=== PATIENT | female | born 1975 | race American Indian/Alaskan Native ===

== ENCOUNTER 2017-03-02 09:21 | Outpatient (CLI) | payer MEDICARE ==
[2017-03-02 10:35] LABS: Blood Urea Nitrogen 17 mg/dL (7-17)
[2017-03-02] MEDS ORDERED: NACL ONE (10:45)
--- NOTE | 2017-03-02 12:01 | Cat Scan Report ---
CT CHEST WITH AND WITHOUT CONTRAST INDICATION: Left hilar nodule. COMPARISON: None similar at this institution. FINDINGS: Pre-and post contrast chest CT suggests slight cardiomegaly. No effusions or size significant adenopathy. Unremarkable image great vessels, though left main pulmonary artery caliber at the hilum and along the left lower lobe branches asymmetrically larger than the right. Patent central airway. Normal thyroid. No focal suspicious lung nodules or mass. Nonspecific distal esophageal wall prominence/thickening, not excluded for gastroesophageal reflux and/or hiatal hernia, amongst others. No significant imaged upper abdominal abnormality. Multilevel predominantly right-sided prominent thoracic spine osteophytes. CONCLUSION: 1. No suspicious lung mass, though left pulmonary artery caliber at the hilum and along the left lower lobe branches noted asymmetrically larger/prominent than the right, of uncertain etiology or clinical significance. Clinical correlation with similar prior imaging, if available or the exam that raised the above concern with also be helpful. 2. Few other incidental findings, as above. Thank you for the opportunity to participate in this patient's care.
== END 2017-03-02 09:22 | disposition home or self-care (01) ==
LOC: CT 09:21
PROVIDERS: ATTEND Internal Medicine
DX: R91.8 Other nonspecific abnormal finding of lung field (principal); M25.78 Osteophyte, vertebrae
CPT/HCPCS: 36415; 71270; 82565; 84520; Q9967

== ENCOUNTER 2018-06-07 09:13 | Outpatient (CLI) | payer MEDICARE ==
[2018-06-07 10:13] LABS: Alanine Aminotransferase 17 units/L (7-56); BUN/Creatinine Ratio 25; Blood Urea Nitrogen 15 mg/dL (7-17); Calcium 9.3 mg/dL (8.4-10.2); Chol/HDL Ratio 4.21 %; HDL Cholesterol 41 mg/dL (40-59); Hemolysis Index 24; LDL Cholesterol,Direct 124 mg/dL (50-130)
[2018-06-07 10:20] LABS: Free T4 (Free Thyroxine) 1.39 ng/dL (0.76-1.46)
[2018-06-07 10:30] LABS: Basophils % (Auto) 0.7 % (0.0-1.8); Eosinophils # (Auto) 0.1 K/mm3 (0.0-0.4); Eosinophils % (Auto) 0.9 % (0.0-4.3); Hematocrit 40.8 % (30.3-42.9); Hemoglobin 13.1 gm/dl (10.1-14.3); Lymphocytes # (Auto) 1.5 K/mm3 (1.2-5.4); Lymphocytes % (Auto) 22.9 % (13.4-35.0); Mean Corpuscular HGB Conc 32 % (30-34); Mean Corpuscular Hemoglobin 28 pg (28-32); Mean Corpuscular Volume 87 fl (79-97); Monocytes # (Auto) 0.4 K/mm3 (0.0-0.8); Monocytes % (Auto) 6.7 % (0.0-7.3); Platelet Count 437 K/mm3 (140-440); Red Blood Count 4.71 M/mm3 (3.65-5.03); Red Cell Distribution Width 14.2 % (13.2-15.2)
== END 2018-06-07 09:14 | disposition home or self-care (01) ==
LOC: LAB 09:13
DX: F31.13 Bipolar disorder, current episode manic without psychotic features, severe (principal); F72 Severe intellectual disabilities; Z79.899 Other long term (current) drug therapy
CPT/HCPCS: 36415; 80053; 80061; 83036; 84146; 84439; 84443; 85025